=== PATIENT | male | born 1955 | race Caucasian/White ===

== ENCOUNTER → 2018-10-11 | Outpatient (CLI) | payer MEDICARE ==
[2018-03-08 11:40] VITALS: BP 113/51
[~2018-10-11] MED LIST: ACET325T9 PO; AMLO10TA8 PO; ASPI-630 PO; ATOR10TA60 PO; ATOR20TA58 PO; BUPR150T8 PO; FINA5TAB4 PO; GLIP10TA13 PO; HYDR12.575 PO; HYDR50TA6 PO; ISOS30TA4 PO; LEVO150T5 PO; LISI-130 PO; METF500T9 PO; TAMS0.4C97 PO
--- NOTE | 2018-10-11 08:12 | RAD ---
Indication: Hypertension. TECHNIQUE: Grayscale, color Doppler and spectral waveforms images of the kidneys. COMPARISON: None FINDINGS: The proximal aortic segment not visualized due to overlying bowel gas. No evidence of aortic aneurysm in the mid and distal segments. The systolic velocity in the aorta measures 167 cm/s. Right side: The right kidney measures 12.1 cm in length without hydronephrosis. The resistive index in the interlobular artery measures 0.70 which is normal. The peak systolic velocity in the distal main renal artery measures 93 cm/s with resistive index of 0.71. The peak systolic velocity in the middle main right renal artery measures 104 cm/s with resistive index of 0.80. The peak systolic velocity in the proximal main renal artery measures 109 cm/s with resistive index of 0.77. Right renal artery to aortic velocity ratio of 0.65. Renal vein is patent. Left side: The left kidney measures 12.8 cm in length without hydronephrosis. The resistive index in the interlobular artery measures 0.71 which is normal. The peak systolic velocity in the distal main renal artery measures 59 cm/s with resistive index of 0.69. The peak systolic velocity in the middle main renal artery measures 80 cm/s with resistive index of 0.74. The peak systolic velocity in the proximal main renal artery measures 51 cm/s with resistive index of 0.72. Left renal artery to aortic velocity ratio of 0.47. Adrenal vein is patent. IMPRESSION: No hematemesis significant stenosis. Electronically signed by: César Ridley DO (10/11/2018 8:10 AM) [facility]
== END | disposition home or self-care (01) ==
LOC: US 07:09
PROVIDERS: ATTEND Internal Medicine Cardiovascular Disease
DX: I10 Essential (primary) hypertension (principal)
CPT/HCPCS: 93975

== ENCOUNTER 2019-09-19 18:55 | Emergency (ER) | payer MEDICARE ==
[~2019-09-19] VITALS: Ht 177.8 cm; Wt 98.0 kg
[~2019-09-19 18:55] MED LIST changes: +METF-658 PO; -METF500T9 PO
[2019-09-19] MEDS ORDERED: IV NORMAL SALINE 1000ML BAG 1,000 ML IV SCH (19:06)
--- NOTE | 2019-09-19 19:24 | PHYS DOC ---
Past Medical History Smoking Status: Former Smoker General Adult EDM: Chief Complaint: CHEST PAIN HPI: HPI: Patient is a 64 year old male who presents with complaint of left arm pain and left arm weakness that has been intermittent over the last week. He states that he is also been having difficulty with organizing his thoughts over the last week as well. He states that yesterday he was having a hard time writing down his email address. He states that he has had a few fleeting episodes of chest discomfort. He denies any nausea, vomiting or diaphoresis. [] Review of Systems: Review of Systems: Constitutional: Denies fever or chills. [] Respiratory: Denies cough or shortness of breath. [] Cardiovascular: Denies chest pain or edema. [] Integument: Denies rash. [] Neurologic: Denies headache. Complains of left arm weakness and tingling [] A full 10 point review of systems has been reviewed and is otherwise negative. Heart Score: HEART Score for Chest Pain: HEART Score for Chest Pain Response (Comments) Value History Slighlty/Non-Suspicious 0 ECG Normal 0 Age > 65 2 Risk Factors 1 or 2 Risk Factors 1 Troponin < Normal Limit 0 Total 3 Risk Factors: Risk Factors: DM, Current or recent (<one month) smoker, HTN, HLP, family history of CAD, obesity. Risk Scores: Score 0 - 3: 2.5% MACE over next 6 weeks - Discharge Home Score 4 - 6: 20.3% MACE over next 6 weeks - Admit for Clinical Observation Score 7 - 10: 72.7% MACE over next 6 weeks - Early Invasive Strategies Allergies: Allergies: Allergies Coded Allergies Type Severity Reaction Last Updated Verified Sulfa (Sulfonamide Antibiotics) Allergy Intermediate Itching 03/07/18 Yes Physical Exam: PE: Constitutional: Well developed, well nourished, no acute distress, non-toxic appearance. [] HENT: Normocephalic, atraumatic, bilateral external ears normal, oropharynx moist, no oral exudates, nose normal. [] Eyes: PERRLA, EOMI, conjunctiva normal, no discharge. [] Neck: Normal range of motion, no tenderness, supple. [] Cardiovascular: Regular rate and rhythm [] Lungs & Thorax: Bilateral breath sounds clear to auscultation [] Abdomen: Bowel sounds normal, soft, no tenderness, no masses, no pulsatile masses. [] Skin: Warm, dry, no erythema, no rash. [] Extremities: No tenderness, no cyanosis, no clubbing, ROM intact, no edema. [] Neurologic: Alert and oriented X 3, no focal deficits noted. [] EKG: EKG: EKG demonstrates normal sinus rhythm with rate of 89. [] Radiology/Procedures: Radiology/Procedures: [] Impression: PROCEDURE: CT HEAD WO CONTRAST Exam: CT head INDICATION: Left-sided weakness TECHNIQUE: Sequential axial images through the head were obtained without the administration of IV contrast. Comparisons: None FINDINGS: No focal parenchymal lesion or hemorrhage is identified. There is no midline shift or sulcal effacement. No acute vascular territory infarction is identified. Marrufo-white distinction is preserved. The ventricular system is within normal limits without compression hydrocephalus. The basal cisterns are well maintained. The visualized portions of the paranasal sinuses and mastoid air cells are well-pneumatized. No acute fractures. IMPRESSION: No acute intracranial abnormality. Exposure: One or more of the following in the visualized dose reduction techniques were utilized for this examination: 1. Automated exposure control 2. Adjustment of the MA and/or KV according to patient size Use of iterative of reconstructive technique Electronically signed by: Samson Davis MD (09/19/2019 7:36 PM) [id number] Course & Med Decision Making: Course & Med Decision Making Pertinent Labs and Imaging studies reviewed. (See chart for details) [] Dragon Disclaimer: Dragon Disclaimer: This electronic medical record was generated, in whole or in part, using a voice recognition dictation system. Departure Departure Impression: Primary Impression: Paresthesia Additional Impressions: Left arm pain Elevated TSH Disposition: 01 HOME, SELF-CARE Condition: STABLE Referrals: TAYLOR ARCHIBALD MD (PCP) Patient Instructions: Chest Pain (Nonspecific), Paresthesia Additional Instructions: Call to schedule follow up appointment with your primary doctor in the next few days. Justicifation of Admission Dx: Justifications for Admission: Justification of Admission Dx: Comment: (Not applicable) NIKOLAS MEDELLIN Jr. DO Sep 19, 2019 19:24
[2019-09-19 19:27] LABS: BASO # 0.1 x10^3/uL (0.0-0.2); BASO % 1 % (0-3); EOS # 0.3 x10^3/uL (0.0-0.7); EOS % 3 % (0-3); HEMATOCRIT 39.7 % (39.0-53.0); HEMOGLOBIN 13.8 g/dL (13.0-17.5); LYMPH # 2.6 x10^3/uL (1.0-4.8); LYMPH % 28 % (24-48); MEAN CORPUSCULAR HEMOGLOBIN 30 pg (25-35); MEAN CORPUSCULAR HGB CONC 35 g/dL (31-37); MEAN CORPUSCULAR VOLUME 87 fL (79-100); MONO % 11 % (0-9); NEUT # 5.3 x10^3/uL (1.8-7.7); NEUT % 57 % (31-73); PLATELET COUNT 266 x10^3/uL (140-400); RED BLOOD COUNT 4.58 x10^6/uL (4.30-5.70); RED CELL DISTRIBUTION WIDTH 13.1 % (11.5-14.5); WHITE BLOOD COUNT 9.3 x10^3/uL (4.0-11.0)
[2019-09-19 19:29] LABS: CALCIUM 9.5 mg/dL (8.5-10.1); CREATININE 1.1 mg/dL (0.7-1.3); POTASSIUM 3.7 mmol/L (3.5-5.1)
[2019-09-19 19:34] LABS: BILIRUBIN,URINE NEGATIVE (NEG); CLARITY,URINE CLEAR; COLOR,URINE YELLOW; NITRITE,URINE NEGATIVE (NEG); PROTEIN,URINE NEGATIVE (NEG-TRACE); UROBILINOGEN,URINE 0.2 mg/dL (0.2 mg/dL)
[2019-09-19 19:36] LABS: ALBUMIN 4.1 g/dL (3.4-5.0); MAGNESIUM 2.3 mg/dL (1.8-2.4); TOTAL BILIRUBIN 0.2 mg/dL (0.2-1.0); TOTAL PROTEIN 8.1 g/dL (6.4-8.2)
[2019-09-19 19:37] LABS: BACTERIA,URINE 0 /HPF (0-FEW); RBC,URINE 0 /HPF (0-2); WBC,URINE 0 /HPF (0-4)
--- NOTE | 2019-09-19 19:39 | RAD ---
Exam: CT head INDICATION: Left-sided weakness TECHNIQUE: Sequential axial images through the head were obtained without the administration of IV contrast. Comparisons: None FINDINGS: No focal parenchymal lesion or hemorrhage is identified. There is no midline shift or sulcal effacement. No acute vascular territory infarction is identified. Marrufo-white distinction is preserved. The ventricular system is within normal limits without compression hydrocephalus. The basal cisterns are well maintained. The visualized portions of the paranasal sinuses and mastoid air cells are well-pneumatized. No acute fractures. IMPRESSION: No acute intracranial abnormality. Exposure: One or more of the following in the visualized dose reduction techniques were utilized for this examination: 1. Automated exposure control 2. Adjustment of the MA and/or KV according to patient size Use of iterative of reconstructive technique Electronically signed by: Samson Davis MD (09/19/2019 7:36 PM) [id number]
--- NOTE | 2019-09-19 19:55 | RAD ---
PORTABLE CHEST 1V 09/19/2019 7:06 PM INDICATION: Chest discomfort COMPARISON: None available TECHNIQUE: Portable frontal view of the chest is provided. FINDINGS: The cardiomediastinal silhouette is within normal limits. Lungs are clear. There are no significant pleural effusions. There is no pulmonary vascular congestion. No pneumothorax. No suspicious osseous abnormality. IMPRESSION: There is no acute cardiopulmonary process. Electronically signed by: Kayla Baum MD (09/19/2019 7:53 PM) [facility]
[2019-09-19 20:10] VITALS: BP 190/86
--- NOTE | 2019-09-20 08:34 | EKG ---
[facility] [address] [place] [address] Test Date: 2019-09-19 Test Time: 18:59:15 Pat Name: GERALD HERMAN Department: Room: Gender: M Gas Brazer: : 1955 Requested By: NIKOLAS MEDELLIN Order Number: [id number] Reading MD: Measurements Intervals Casey Rate: 89 P: 28 MS: 178 QRS: 21 QRSD: 82 T: 56 QT: 360 QTc: 439 Interpretive Statements SINUS RHYTHM LEFT ATRIAL ABNORMALITY ABNORMAL ECG RI6.02 No previous ECG available for comparison
== END 2019-09-19 20:43 | disposition home or self-care (01) ==
LOC: ER 18:55
DX: M79.602 Pain in left arm (principal); R20.2 Paresthesia of skin; R94.6 Abnormal results of thyroid function studies; R51 Headache; R53.1 Weakness; R07.89 Other chest pain; Z87.891 Personal history of nicotine dependence; Z88.2 Allergy status to sulfonamides
CPT/HCPCS: 36415; 70450; 71045; 80053; 81001; 83735; 83880; 84443; 84484; 85025; 93005; 99285; J7030

== ENCOUNTER → 2019-09-21 | Outpatient (CLI) | payer MEDICARE ==
[2019-09-19 20:10] VITALS: BP 190/86
--- NOTE | 2019-09-21 12:02 | CARD ---
MR#: [id number] Date of Study: 09/21/2019 Ordering Physician: NICOLASA KAYE, Referring Physician: NICOLASA KAYE Tech: Tana Santiago ARTHUR APPROVED REPORT EXAM: Two-dimensional and M-mode echocardiogram with Doppler and color Doppler. Other Information Quality : FairHR: 63bpm Rhythm : NSR INDICATION Dyspnea CAD Chest Pain RISK FACTORS Hypertension Hyperlipidemia Diabetes 2D DIMENSIONS RVDd3.4 (2.9-3.5cm)Left Atrium(2D)4.8 (1.6-4.0cm) IVSd1.4 (0.7-1.1cm)Aortic Root(2D)3.7 (2.0-3.7cm) LVDd5.8 (3.9-5.9cm)LVOT Diameter2.5 (1.8-2.4cm) PWd1.3 (0.7-1.1cm)LVDs4.4 (2.5-4.0cm) FS (%) 23.6 %SV78.1 ml Aortic Valve AoV Peak Sorin.150.0cm/sAoV VTI33.8cm AO Peak GR.9.0mmHgLVOT Peak Sorin.92.1cm/s AO Mean GR.5mmHgAVA (VMAX)3.12cm2 Mitral Valve MV E Rwqhbygo958.0cm/sMV DECEL KTMG458as MV A Evtejzgl407.0cm/sE/A Ratio0.8 MV A Liuubwhj853fi Pulmonary Valve PV Peak Rdvfycpr07.2cm/s LEFT VENTRICLE The Left Ventricle is mildly dilated. There is mild concentric left ventricular hypertrophy. The left ventricular systolic function is mildly decreased. Estimated ejection fraction is 40-45%. There is m ild global hypokinesis of the left ventricle. RIGHT VENTRICLE The right ventricle is normal size. There is normal right ventricular wall thickness. The right ventr icular systolic function is normal. ATRIA The left atrium size is normal. The right atrium size is normal. The interatrial septum is intact wit h no evidence for an atrial septal defect or patent foramen ovale as noted on 2-D or Doppler imaging. AORTIC VALVE The aortic valve is normal in structure and function. Doppler and Color Flow revealed mild aortic reg urgitation. There is no significant aortic valvular stenosis. MITRAL VALVE The mitral valve is normal in structure and function. There is no evidence of mitral valve prolapse. There is no mitral valve stenosis. Doppler and Color-flow revealed trace mitral regurgitation. TRICUSPID VALVE The tricuspid valve is normal in structure and function. Doppler and Color Flow revealed no tricuspid valve regurgitation noted. PULMONIC VALVE The pulmonary valve is normal in structure and function. Doppler and Color Flow revealed trivial pulm onic valvular regurgitation. GREAT VESSELS The aortic root is normal in size. The ascending aorta is normal in size. The pulmonary artery is nor mal. The IVC is normal in size and collapses >50% with inspiration. PERICARDIAL EFFUSION There is no evidence of significant pericardial effusion. Critical Notification Critical Value: Yes <Conclusion> The Left Ventricle is mildly dilated. The left ventricular systolic function is mildly decreased. Estimated ejection fraction is 40-45%. There is mild global hypokinesis of the left ventricle. There is mild concentric left ventricular hypertrophy. Doppler and Color Flow revealed mild aortic regurgitation. There is no significant aortic valvular stenosis. Doppler and Color-flow revealed trace mitral regurgitation. Doppler and Color Flow revealed no tricuspid valve regurgitation noted. Signed by : Mango Burleson MD Electronically Approved : 09/21/2019 12:01:54
== END ==
LOC: ECHO 09:40
PROVIDERS: ATTEND Internal Medicine Cardiovascular Disease
DX: I08.8 Other rheumatic multiple valve diseases (principal); I25.10 Atherosclerotic heart disease of native coronary artery without angina pectoris
CPT/HCPCS: 93306

== ENCOUNTER → 2019-09-27 | Outpatient (CLI) | payer MEDICARE ==
[2019-09-19 20:10] VITALS: BP 190/86
[~2019-09-27] MED LIST changes: +REGADENOSON 0.4 MG/5 ML DISP.SYRIN. IV ONE
--- NOTE | 2019-09-27 11:03 | RAD ---
MR#: [id number] Date of Study: 09/27/2019 Ordering Physician: NICOLASA KAYE, Referring Physician: NALDO BRIGGS Tech: RT Len ChilelR) (N) APPROVED REPORT Test Type: Pharmacological Stress Nurse/Tech: SALUD Grove Test Indications: chest pain, shortness of breath, CAD Cardiac History: HTN, , See Electronic Medical Record Medications: See Electronic Medical Record Medical History: See Electronic Medical Record Resting ECG: SR Resting Heart Rate: 61 bpm Resting Blood Pressure: 154/82mmHg Pretest Chest Pain: No chest pain Nurse/Tech Notes S1S2, regular rate, Lungs CTA, denied CP or SOA at this time Consent: The procedure was explained to the patient in lay terms. Informed consent was witnessed. Julius eout was entered into [employer]. History and Stress Test performed by ALDO Card, ARRT (R) (N) Pharm. Details Pharmacologic stress testing was performed using 0.4mg per 5ml of regadenoson given intravenously ove r 7-10 seconds. Stress Symptoms Pt c/o "tightness" in his chest, subsided after a couple minutes. POST EXERCISE Reason for Termination: Infusion complete Max HR: 97 bpm Max Blood Pressure: 166/79mmHg Blood Pressure response to exercise: Normal blood pressure response during stress. Heart Rate response to exercise: Normal heart rate response during stress Chest Pain: No. Arrhythmia: No. ST Change: No. INTERPRETATION Stress EKG Conclusion: Baseline EKG showed sinus rhythm. No ischemic changes at peak stress. No arr hythmias. Imaging Protocol IMAGE PROTOCOL: Rest Tc-99m/stress Tc-99m 1 day Rest: Stress: Viability: Radiopharm.Tc99m HohurgernYk52k Sestamibi Njus92eZj 33mCi Duration 15min. 10min. Img Date 09/27/2019 09/27/2019 Inj-Img Xoeu94dsh. 60min. Rest Admin Site:IV - Left AntecubitalAdministrator:RT Len ChilelR)(N) Stress Admin Site: IV - Left AntecubitalAdministrator: Charisma Hess, NMTCB, ARRT (R)(N) STRESS DATA End Diast. Vol.174.0mlAv. Heart Rate72.0bpm End Syst. Vol.72.0mlCO Index BSA7.3L/min Myocardial Vtvs639.0gEject. Aijedhzt66.0% Stress Rates Pk. Fill Rate1.88EDV/secLVtime Pk. Fill 219.80msec Pk. Empty Rate3.39ESV/secLVtime Pk. Tjvyc830.72msec /3 Pk. Fill0.86EDV/sec Stress Scores Regional WT0.00Summed WT7.00 Regional WM0.00Summed WM0.00 Study quality was good. Left Ventricular size was Normal at Rest and Stress. Lung uptake was . Left Ventricular ejection fraction is 59%. The rest and stress images show normal perfusion, normal contraction and thickening. LV Perf. Quant 17 Seg. SSS1.00 17 Seg. SRS0.00 17 Seg. SDS1.00 Stress Defect Extent (% LAD)0.00Rest Defect Extent (% LAD)0.00Rev. Defect Extent (% LAD)0.00 Stress Defect Extent (% LCX) 6.30Rest Defect Extent (% LCX)0.00Rev. Defect Extent (% LCX)0.00 Stress Defect Extent (% RCA)0.00Rest Defect Extent (% RCA)0.00Rev. Defect Extent (% RCA)0.00 Stress Defect Extent (% ISH)2.00Rest Defect Extent (% ISH)0.00Rev. Defect Extent (% ISH)0.00 Conclusion 1. Regadenoson cardioisotope stress test did not show any evidence of ischemia or infarct. 2. Normal left ventricular systolic function with ejection fraction calculated at 59%. 3. Low risk for cardiac events. Signed by : Nicolasa Kaye, Electronically Approved : 09/27/2019 11:03:20
== END | disposition home or self-care (01) ==
LOC: NM 07:38
PROVIDERS: ATTEND Internal Medicine Cardiovascular Disease
DX: I25.10 Atherosclerotic heart disease of native coronary artery without angina pectoris (principal)
CPT/HCPCS: 78452; 93017; A9500; J2785

== ENCOUNTER 2020-01-21 15:21 | Observation (INO) | payer MEDICARE ==
[~2020-01-21] VITALS: Ht 177.8 cm; Wt 97.8 kg
[~2020-01-21 15:21] MED LIST changes: +AMLO-187 PO; -AMLO10TA8 PO; -REGADENOSON 0.4 MG/5 ML DISP.SYRIN. IV ONE
--- NOTE | 2020-01-21 16:25 | RAD ---
Study: CR PORTABLE CHEST 1V Indication: Shortness of air. Comparison: 09/19/2019 Findings: Unchanged prominence of the cardiomediastinal silhouette. Within normal limits central vasculature. No lobar consolidation, layering effusion or pneumothorax. Impression: No acute radiographic abnormality of the chest. No significant change from 09/19/2019. Electronically signed by: GEMA BRUNSON MD (01/21/2020 4:23 PM) [id number]
[2020-01-21 16:36] LABS: BILIRUBIN,URINE NEGATIVE (NEG); CLARITY,URINE CLOUDY; COLOR,URINE YELLOW; NITRITE,URINE NEGATIVE (NEG); PH,URINE 6.5 (<5.0-8.0); PROTEIN,URINE NEGATIVE (NEG-TRACE); UROBILINOGEN,URINE 0.2 mg/dL (0.2 mg/dL)
[2020-01-21 16:45] LABS: BACTERIA,URINE 0 /HPF (0-FEW); RBC,URINE OCC /HPF (0-2)
[2020-01-21 17:04] LABS: BASO # 0.1 x10^3/uL (0.0-0.2); BASO % 1 % (0-3); EOS # 0.3 x10^3/uL (0.0-0.7); EOS % 4 % (0-3); HEMATOCRIT 38.9 % (39.0-53.0); HEMOGLOBIN 13.7 g/dL (13.0-17.5); LYMPH # 2.1 x10^3/uL (1.0-4.8); LYMPH % 23 % (24-48); MEAN CORPUSCULAR HEMOGLOBIN 31 pg (25-35); MEAN CORPUSCULAR HGB CONC 35 g/dL (31-37); MEAN CORPUSCULAR VOLUME 87 fL (79-100); MONO % 11 % (0-9); NEUT # 5.8 x10^3/uL (1.8-7.7); NEUT % 62 % (31-73); PLATELET COUNT 257 x10^3/uL (140-400); RED BLOOD COUNT 4.46 x10^6/uL (4.30-5.70); RED CELL DISTRIBUTION WIDTH 13.3 % (11.5-14.5); WHITE BLOOD COUNT 9.3 x10^3/uL (4.0-11.0)
[2020-01-21 17:07] LABS: CREATININE 1.1 mg/dL (0.7-1.3); POTASSIUM 3.4 mmol/L (3.5-5.1)
--- NOTE | 2020-01-21 17:13 | PHYS DOC ---
Past Medical History Past Medical History: Anxiety, Hypertension, Hypothyroid, Other Additional Past Medical Histor: osteomylitis right leg; DDD Past Surgical History: Other Additional Past Surgical Histo: R ankle; hernia; sinus Smoking Status: Never Smoker Alcohol Use: None General Adult EDM: Chief Complaint: CHEST PAIN HPI: HPI: Patient is a 64 year old male who presented to ER today for evaluation of chest pain off and on for 4 days. Patient described the pain as heaviness, felt like somebody sitting on his chest and took the wind out of him. Patient denies any fever. Denies any chills. He has a history of chronic cough nonproductive. He was a former smoker, he quit smoking 30 years ago. Patient has history of hypertension and diabetic. He had a normal cardiac catheterization on February 2018. Patient does have family history of heart disease. Patient denies any recent travel or operation. Review of Systems: Review of Systems: Constitutional: Denies fever or chills. [] Eyes: Denies change in visual acuity. [] HENT: Denies nasal congestion or sore throat. [] Respiratory: Denies cough or shortness of breath. [] Cardiovascular: positive for chest pain. GI: Denies abdominal pain, nausea, vomiting, bloody stools or diarrhea. [] : Denies dysuria. [] Musculoskeletal: Denies back pain or joint pain. [] Integument: Denies rash. [] Neurologic: Denies headache, focal weakness or sensory changes. [] Endocrine: Denies polyuria or polydipsia. [] Lymphatic: Denies swollen glands. [] Psychiatric: Denies depression or anxiety. [] Heart Score: HEART Score for Chest Pain: HEART Score for Chest Pain Response (Comments) Value History Moderately Suspicious 1 ECG Nonspecific Repolarizatio 1 Age > 65 2 Risk Factors >3 Risk Factors or Hx CAD 2 Troponin < Normal Limit 0 Total 6 Risk Factors: Risk Factors: DM, Current or recent (<one month) smoker, HTN, HLP, family history of CAD, obesity. Risk Scores: Score 0 - 3: 2.5% MACE over next 6 weeks - Discharge Home Score 4 - 6: 20.3% MACE over next 6 weeks - Admit for Clinical Observation Score 7 - 10: 72.7% MACE over next 6 weeks - Early Invasive Strategies Allergies: Allergies: Allergies Coded Allergies Type Severity Reaction Last Updated Verified Sulfa (Sulfonamide Antibiotics) Allergy Intermediate Itching 03/07/18 Yes Physical Exam: PE: Constitutional: Well developed, well nourished, no acute distress, non-toxic appearance. [] HENT: Normocephalic, atraumatic, bilateral external ears normal, oropharynx moist, no oral exudates, nose normal. [] Eyes: PERRLA, EOMI, conjunctiva normal, no discharge. [] Neck: Normal range of motion, no tenderness, supple, no stridor. [] Cardiovascular:Heart rate regular rhythm, no murmur [] Lungs & Thorax: Bilateral breath sounds clear to auscultation [] Abdomen: Bowel sounds normal, soft, no tenderness, no masses, no pulsatile masses. [] Skin: Warm, dry, no erythema, no rash. [] Back: No tenderness, no CVA tenderness. [] Extremities: No tenderness, no cyanosis, no clubbing, ROM intact, no edema. [] Neurologic: Alert and oriented X 3, normal motor function, normal sensory function, no focal deficits noted. [] Psychologic: Affect normal, judgement normal, mood normal. [] Current Patient Data: Labs: Laboratory Tests Test 01/21/20 16:20 01/21/20 16:38 Urine Collection Type Unknown Urine Color Yellow Urine Clarity Cloudy Urine pH 6.5 (<5.0-8.0) Urine Specific Delight <=1.005 (1.000-1.030) Urine Protein Negative mg/dL (NEG-TRACE) Urine Glucose (UA) Negative mg/dL (NEG) Urine Ketones (Stick) Negative mg/dL (NEG) Urine Blood Negative (NEG) Urine Nitrite Negative (NEG) Urine Bilirubin Negative (NEG) Urine Urobilinogen Dipstick 0.2 mg/dL (0.2 mg/dL) Urine Leukocyte Esterase Negative (NEG) Urine RBC Occ /HPF (0-2) Urine WBC 5-10 /HPF (0-4) Urine Squamous Epithelial Cells Few /LPF Urine Bacteria 0 /HPF (0-FEW) White Blood Count 9.3 x10^3/uL (4.0-11.0) Red Blood Count 4.46 x10^6/uL (4.30-5.70) Hemoglobin 13.7 g/dL (13.0-17.5) Hematocrit 38.9 % (39.0-53.0) L Mean Corpuscular Volume 87 fL (79-100) Mean Corpuscular Hemoglobin 31 pg (25-35) Mean Corpuscular Hemoglobin Concent 35 g/dL (31-37) Red Cell Distribution Width 13.3 % (11.5-14.5) Platelet Count 257 x10^3/uL (140-400) Neutrophils (%) (Auto) 62 % (31-73) Lymphocytes (%) (Auto) 23 % (24-48) L Monocytes (%) (Auto) 11 % (0-9) H Eosinophils (%) (Auto) 4 % (0-3) H Basophils (%) (Auto) 1 % (0-3) Neutrophils # (Auto) 5.8 x10^3/uL (1.8-7.7) Lymphocytes # (Auto) 2.1 x10^3/uL (1.0-4.8) Monocytes # (Auto) 1.0 x10^3/uL (0.0-1.1) Eosinophils # (Auto) 0.3 x10^3/uL (0.0-0.7) Basophils # (Auto) 0.1 x10^3/uL (0.0-0.2) Sodium Level 139 mmol/L (136-145) Potassium Level 3.4 mmol/L (3.5-5.1) L Chloride Level 100 mmol/L (98-107) Carbon Dioxide Level 26 mmol/L (21-32) Anion Gap 13 (6-14) Blood Urea Nitrogen 14 mg/dL (8-26) Creatinine 1.1 mg/dL (0.7-1.3) Estimated GFR (Cockcroft-Gault) 67.0 BUN/Creatinine Ratio 13 (6-20) Glucose Level 198 mg/dL (70-99) H Calcium Level 9.0 mg/dL (8.5-10.1) Magnesium Level Pending Total Bilirubin Pending Aspartate Amino Transferase (AST) Pending Alanine Aminotransferase (ALT) Pending Alkaline Phosphatase Pending Total Protein Pending Albumin Pending Albumin/Globulin Ratio Pending Lipase Pending Laboratory Tests 01/21/20 16:38 Laboratory Tests 01/21/20 16:38 Vital Signs: Vital Signs Date Time Temp Pulse Resp B/P (MAP) Pulse Ox O2 Delivery O2 Flow Rate FiO2 01/21/20 15:37 99.1 93 18 220/101 (140) 97 Room Air 99.1 EKG: EKG: EKG WAS DONE AT 1527 RATE OF 87 BPM, SINUS RHYTHM, NO STEMI. , NO STEMI. Radiology/Procedures: Radiology/Procedures: [][id number] [place] [address] IMAGING REPORT Signed PATIENT: GERALD HERMAN: [id number] : 1955 LOCATION: ER AGE: 64 SEX: M EXAM STATUS: REG ER ORD. PHYSICIAN: PHILIP DIAZ DO REASON: soa PROCEDURE: PORTABLE CHEST 1V Study: CR PORTABLE CHEST 1V Indication: Shortness of air. Comparison: 09/19/2019 Findings: Unchanged prominence of the cardiomediastinal silhouette. Within normal limits central vasculature. No lobar consolidation, layering effusion or pneumothorax. Impression: No acute radiographic abnormality of the chest. No significant change from 09/19/2019. Electronically signed by: GEMA BRUNSON MD (01/21/2020 4:23 PM) [id number] DICTATED and SIGNED BY: GEMA BRUNSON MD DATE: 01/21/[address] [address] IMAGING REPORT Signed PATIENT: GERALD HERMAN: [id number] : 1955 LOCATION: ER AGE: 64 SEX: M EXAM STATUS: REG ER ORD. PHYSICIAN: PHILIP DIAZ DO REASON: CHEST PAIN AND SHORTNESS OF AIR FOR 4 DAYS PROCEDURE: CT ANGIOGRAPHY CHEST Exam: CT of chest with contrast INDICATION: Chest pain and shortness of breath for 4 days TECHNIQUE: Sequential axial images through the chest obtained following the administration of 100 mL of Omnipaque 350 IV contrast. Sagittal and coronal reformatted images were reconstructed from the axial data and reviewed. Comparisons: None FINDINGS: Visualized portions of the thyroid are unremarkable. No enlarged mediastinal lymph nodes are identified. Heart is enlarged. Mild coronary artery calcium lesions. No pericardial effusion. Thoracic aorta has a normal course and caliber. Pulmonary artery is not enlarged. No pulmonary embolus identified within the main, lobar or segmental pulmonary arteries. Airways are patent. No consolidation or pneumothorax. No suspicious lung nodules. Strandy opacities at dependent portion lungs likely representing atelectasis. No pleural effusion or thickening. Diffuse hepatic steatosis. No suspicious osseous lesions or acute fractures. IMPRESSION: No pulmonary embolus identified within the main, lobar or segmental pulmonary arteries. Exposure: One or more of the following in the visualized dose reduction techniques were utilized for this examination: 1. Automated exposure control 2. Adjustment of the MA and/or KV according to patient size 3. Use of iterative of reconstructive technique Electronically signed by: Samson Mayfield MD (01/21/2020 5:42 PM) [facility] DICTATED and SIGNED BY: SAMSON MAYFIELD MD DATE: 01/21/20 174 Course & Med Decision Making: Course & Med Decision Making Pertinent Labs and Imaging studies reviewed. (See chart for details) Patient is a 64-year-old male who presented to ER due to chest pain, CT scan of chest did not show any acute problem. EKG and enzyme came back normal so far. Due to risk factor patient be admitted to hospital for observation. Discussed with Dr. Lino who agrees TO admit patient Dragon Disclaimer: Heber Disclaimer: This electronic medical record was generated, in whole or in part, using a voice recognition dictation system. Departure Departure Impression: Primary Impression: Chest pain Admitting Physician: DEWAYNES (DR. LINO) Referrals: CHERRI STOKES MD (PCP) PHILIP DIAZ DO Jan 21, 2020 17:12
[2020-01-21 17:22] LABS: ALBUMIN 3.9 g/dL (3.4-5.0); MAGNESIUM 2.3 mg/dL (1.8-2.4); TOTAL BILIRUBIN 0.2 mg/dL (0.2-1.0); TOTAL PROTEIN 7.7 g/dL (6.4-8.2)
[2020-01-21] MEDS ORDERED: IOHEXOL 350 MG/ML 100 ML VIAL. IV ONE (17:30)
[2020-01-21] MEDS ORDERED: CONTRAST GIVEN. MC PRN (17:30)
--- NOTE | 2020-01-21 17:39 | EKG ---
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
--- NOTE | 2020-01-21 17:45 | RAD ---
Exam: CT of chest with contrast INDICATION: Chest pain and shortness of breath for 4 days TECHNIQUE: Sequential axial images through the chest obtained following the administration of 100 mL of Omnipaque 350 IV contrast. Sagittal and coronal reformatted images were reconstructed from the axial data and reviewed. Comparisons: None FINDINGS: Visualized portions of the thyroid are unremarkable. No enlarged mediastinal lymph nodes are identified. Heart is enlarged. Mild coronary artery calcium lesions. No pericardial effusion. Thoracic aorta has a normal course and caliber. Pulmonary artery is not enlarged. No pulmonary embolus identified within the main, lobar or segmental pulmonary arteries. Airways are patent. No consolidation or pneumothorax. No suspicious lung nodules. Strandy opacities at dependent portion lungs likely representing atelectasis. No pleural effusion or thickening. Diffuse hepatic steatosis. No suspicious osseous lesions or acute fractures. IMPRESSION: No pulmonary embolus identified within the main, lobar or segmental pulmonary arteries. Exposure: One or more of the following in the visualized dose reduction techniques were utilized for this examination: 1. Automated exposure control 2. Adjustment of the MA and/or KV according to patient size 3. Use of iterative of reconstructive technique Electronically signed by: Samson Davis MD (01/21/2020 5:42 PM) [facility]
[2020-01-21] MEDS ORDERED: DEXTROSE 50% 25 GM / 50ML DISP.SYRIN. IV PRN (22:15)
[2020-01-21] MEDS ORDERED: ONDANSETRON PF 4 MG/2 ML VIAL. IV PRN (22:15)
[2020-01-21] MEDS ORDERED: METOPROLOL TARTRATE 5 MG/5 ML VIAL. IVP PRN (22:15)
[2020-01-21] MEDS ORDERED: DOCUSATE SODIUM 100 MG CAPSULE. PO PRN (22:15)
[2020-01-21] MEDS ORDERED: ACETAMINOPHEN 325 MG TABLET. PO PRN (22:15)
[2020-01-21] MEDS ORDERED: POTASSIUM CHLORIDE 20 MEQ TABLET.ER. PO ONE (22:30)
[2020-01-21] MEDS ORDERED: ATOR10TA60 PO (22:49)
[2020-01-21] MEDS ORDERED: METF10007 PO (22:49)
[2020-01-21] MEDS ORDERED: TAMS0.4C97 PO (22:49)
[2020-01-21] MEDS ORDERED: ATORVASTATIN CALCIUM 20 MG TABLET PO SCH (23:00)
[2020-01-21] MEDS ORDERED: ENOXAPARIN 40 MG/0.4 ML SYRINGE. SQ SCH (23:00)
[2020-01-21 23:04] VITALS: BP 182/104
[2020-01-22] MEDS ORDERED: TAMSULOSIN 0.4 MG CAP.ER.24H. PO SCH
[2020-01-22] MEDS ORDERED: ATORVASTATIN CALCIUM 10 MG TABLET. PO SCH
[2020-01-22 03:09] VITALS: BP 149/84
[2020-01-22 05:26] LABS: CALCIUM 8.9 mg/dL (8.5-10.1); CREATININE 1.1 mg/dL (0.7-1.3); POTASSIUM 3.7 mmol/L (3.5-5.1)
[2020-01-22] MEDS ORDERED: LEVOTHYROXINE 150 MCG TABLET PO SCH (06:00)
[2020-01-22 07:00] VITALS: BP 157/84
[2020-01-22] MEDS: INSULIN LISPRO 300 UNITS/3 ML VIAL. SQ SCH ×2 (07:30→12:38)
[2020-01-22] MEDS ORDERED: FINASTERIDE 5 MG TABLET. PO SCH (09:00)
[2020-01-22] MEDS ORDERED: amLODIPine BESYLATE 10 MG TABLET PO SCH (09:00)
[2020-01-22] MEDS ORDERED: ASPIRIN CHEWABLE 81 MG TABLET. PO SCH (09:00)
[2020-01-22] MEDS ORDERED: ISOSORBIDE MONONITRATE ER 30 MG TAB.ER.24H PO SCH (09:00)
[2020-01-22] MEDS ORDERED: LISINOPRIL 20 MG TABLET PO SCH (09:00)
[2020-01-22] MEDS ORDERED: buPROPion SR 150 MG TABLET.SA PO SCH (09:00)
[2020-01-22 11:00] VITALS: BP 133/75
--- NOTE | 2020-01-22 11:05 | NUR ---
SS following for discharge planning. SS reviewed pt chart and discussed with pt RN. Pt is from home with spouse and is currently on room air. Discharge plan is to home when medically ready. Possible discharge to home today. SS will continue to follow for discharge planning.
--- NOTE | 2020-01-22 11:44 | SSS ---
ADMIT DATE: 01/22/2020 ADMIT AND DISCHARGE DATE: 01/21. CHIEF COMPLAINT: Chest pain. HISTORY OF PRESENT ILLNESS: The patient is a pleasant 64-year-old male who presented to the ER last night with chest pain. It has been occurring for 4 days. He thinks it was anxiety related. He had a clean cath done about [address] Godwin. The patient was admitted overnight for observation. This morning, he is doing well. I saw and examined him and he wants to go home. His troponins are negative. He has requested script for some p.r.n. anxiety medicine. He states he is already on Wellbutrin. I gave him prescription for Xanax. We are going to let him home this afternoon. PAST MEDICAL HISTORY: Anxiety, hypertension, hypothyroidism, osteomyelitis of the right leg, degenerative joint disease, right ankle surgery, hernia surgery, sinus surgery,polypharmacy. ALLERGIES: SULFA. FAMILY HISTORY: Diabetes. SOCIAL HISTORY: He does not drink, smoke or take drugs. He is still working. He is . No hobbies currently. MEDICATIONS: Reviewed, please refer to the MRAD. REVIEW OF SYSTEMS: GENERAL: No history of weight change, weakness or fevers. SKIN: No bruising, hair changes or rashes. EYES: No blurred, double or loss of vision. NOSE AND THROAT: No history of nosebleeds, hoarseness or sore throat. HEART: No history of palpitations, chest pain or shortness of breath on exertion. LUNGS: Denies cough, hemoptysis, wheezing or shortness of breath. GASTROINTESTINAL: Denies changes in appetite, nausea, vomiting, diarrhea or constipation. GENITOURINARY: No history of frequency, urgency, hesitancy or nocturia. NEUROLOGIC: Denies history of numbness, tingling, tremor or weakness. PSYCHIATRIC: No history of panic, anxiety or depression. ENDOCRINE: No history of heat or cold intolerance, polyuria or polydipsia. EXTREMITIES: Denies muscle weakness, joint pain, pain on walking or stiffness. PHYSICAL EXAMINATION: VITALS: Within normal limits and are stable. GENERAL: No apparent distress. Alert and oriented. HEENT: Normal cephalic atraumatic, external auditory canals are patent. EYES: Extraocular muscles are intact, pupils are equally round and reactive to light and accommodation. MUSCULOSKELETAL: Well developed, well nourished, good range of motion. ENDOCRINE: No thyromegaly was palpated. LYMPHATICS: No cervical chain or axillary nodes were noted. HEMATOPOIETIC: No bruising. NECK: Supple, no JVD, no thyromegaly was noted. LUNGS: Clear to auscultation in all lung miller without rhonchi or wheezing. HEART: RRR, S1, S2 present. Peripheral pulses intact, no obvious murmurs were noted. ABDOMEN: Soft, nontender. Positive bowel sounds no organomegaly, normal bowel sounds. EXTREMITIES: Without any cyanosis, clubbing, or edema. Pedal pulses intact, Homans sign is negative. NEUROLOGIC: Normal speech, normal tone. A & O x3, moves all extremities, no obvious focal deficits. PSYCHIATRIC: Normal affect, normal mood. Stable. SKIN: No ulcerations or rashes, good skin turgor, no jaundice. VASCULAR: Good capillary refill, neurovascular bundle appears to be intact. ASSESSMENT AND PLAN: Atypical chest pain, suspect costochondritis versus gastroesophageal reflux disease versus anxiety or combination of the three. Clinically, he looks great. We are going to let him go home with close outpatient followup. DISPOSITION: Home. ACTIVITY: As tolerated. DIET: Low sodium. MEDICATIONS: Please see the MRAD. TOTAL TIME: 32 minutes. IGOR YOUNGBLOOD DO DR: ELIZABETH/rachael JOB#: [id number] / [id number]
[2020-01-22] MEDS ORDERED: POTA20TA4 PO (12:18)
[2020-01-22] MEDS ORDERED: ALPR0.5T PO (12:19)
--- NOTE | 2020-01-22 12:53 | NUR ---
Discharge Note: GERALD HERMAN [address] [place] [address] Discharge instructions and discharge home medications reviewed with Patient and a copy given. All questions have been answered and understanding verbalized. The following instructions and handouts were given: discharge instructions, prescriptions, hypokalemia & K info, CP info, Xanax info, GERD info, anxiety info. Discontinued lines and drains: Peripheral IV intact. Patient discharged to Home or Self Care with Spouse via Wheelchair at 1253.
== END 2020-01-22 12:53 | disposition home or self-care (01) ==
LOC: ER 15:21 → ED HOLD 18:28 → 2 NORTH 21:27
PROVIDERS: ADMIT Internal Medicine; ATTEND Internal Medicine
DX: R07.89 Other chest pain (principal); I10 Essential (primary) hypertension; F41.9 Anxiety disorder, unspecified; E03.9 Hypothyroidism, unspecified; E11.9 Type 2 diabetes mellitus without complications; M19.071 Primary osteoarthritis, right ankle and foot; Z98.890 Other specified postprocedural states; Z79.899 Other long term (current) drug therapy; Z79.4 Long term (current) use of insulin
CPT/HCPCS: 36415; 71045; 71275; 80048; 80053; 81001; 82962; 83690; 83735; 83880; 84443; 84484; 85025; 87086; 93005; 96372; 96374; 99285; G0378; J1650; J1815; J3490; Q9967; G0379

== ENCOUNTER → 2020-06-06 | Outpatient (CLI) | payer MEDICARE ==
[~2020-06-06] MED LIST changes: +ALPR0.5T PO; -HYDR50TA6 PO; +HYDR50TA9 PO; -ISOS30TA4 PO; +ISOS30TA68 PO; +METF10007 PO; +POTA20TA4 PO
--- NOTE | 2020-06-06 13:30 | RAD ---
MR#: [id number] Date of Study: 06/06/2020 Ordering Physician: NICOLASA KAYE, Referring Physician: NICOLASA KAYE, Tech: Pa Castellano MBA, RDMS, RVT, RDCS, RTR APPROVED REPORT Patient Location: OUT-PATIENT Indications CAD Renal Artery Doppler Right Renal Artery Left Renal Arter y Proximal 103.0/21.0 cm/secProximal 74.0/20.0 cm/sec Mid 106.0/21.0 cm/secMid 66.0/15.0 cm/sec Distal 75.0/16.0 cm/secDistal 59.0/17.0 cm/sec Renal/Aorta Ratio 0.76Renal/Aorta Ratio 0.53 Prox. Resistive Index 0.80Prox. Resistive Index 0.73 Mid Resistive Index 0.80Mid Resistive Index 0.77 Distal Resistive Index 0.79Distal Resistive Index 0.72 Rt. Segmental A. 24.0/7.0 cm/secLt. Segmental A. 24.0/6.0 cm/sec Renal Measurements RightLeft Kidney Ryhson77.5 cm cmKidney Ucpwaa49.2 cm cm Right Additional FindingsLeft Additional Findings Structure: CYST3.0/ cm/s Findings Grayscale lesions the bilateral renal vessels are grossly unremarkable. Normal renal to aortic ratio s and velocities. There is a incidental renal cysts noted on the left side measuring approximately 3 cm. This appears to be a simple cyst. Critical Notification Critical Value: No <Conclusion> 1. No significant renal artery stenosis identified bilaterally 2. Incidental finding of a left simple renal cyst measuring 3 cm. Signed by : Montana Benson, Electronically Approved : 06/06/2020 13:29:52
== END ==
LOC: US 09:28
PROVIDERS: ATTEND Internal Medicine Cardiovascular Disease
DX: I70.1 Atherosclerosis of renal artery (principal); I25.10 Atherosclerotic heart disease of native coronary artery without angina pectoris; I70.0 Atherosclerosis of aorta
CPT/HCPCS: 93975

== ENCOUNTER 2020-07-03 09:16 | Emergency (ER) | payer MEDICARE ==
[~2020-07-03] VITALS: Ht 177.8 cm; Wt 97.7 kg
--- NOTE | 2020-07-03 09:56 | ED.ADGEN ---
Past Medical History Past Medical History: Anxiety, Diabetes-Type II, GERD, High Cholesterol, Hypertension, Hypothyroid, Other Additional Past Medical Histor: osteomylitis right leg; DDD Past Surgical History: Other Additional Past Surgical Histo: R ankle; hernia;sinus,PROSTATE Smoking Status: Former Smoker Alcohol Use: None General Adult EDM: Chief Complaint: CHEST PAIN HPI: HPI: Patient is a 65 year old male coming in for multiple complaints. Patient states for the past couple weeks been having intermittent left-sided sharp chest pain, dyspnea on exertion, occasional jaw pain and tingling down both arms. Patient initially attributed the tingling in his arms to his cervical radiculopathy. Patient states he was seen 4 days ago in [place] and had a CT cardiac scan done. Patient and his for yesterday results and was told he had calcifications. Patient's coil strapper is Dr. Godwin has not been able to follow-up with him. Patient states yesterday he had an episode of diaphoresis, lightheadedness, and shakiness. States it resolved after he took some glucose tablets. Patient states he is taking a statin, diabetes medications, for blood pressure medications. States that in February 2018 he had a heart cath done and was told that there were some small vessel occlusions or too small to stent. Patient states he has blood pressure that is difficult to control is been running high recently. Patient states that about 1 week ago had an episode of feeling unwell and checked his pulse and blood pressure. States his pulse ranged from 39-49, his blood pressure was high in both arms but symmetric. Denies any lower extremity edema or history of blood clots. Has a history of heart disease in both parents. Patient states he has had increased urination, debulking of his prostate 3 weeks ago for low-grade prostate cancer Review of Systems: Review of Systems: All other systems within normal limits except for as noted in the HPI Allergies: Allergies: Allergies Coded Allergies Type Severity Reaction Last Updated Verified Penicillins Allergy Intermediate UNKNOWN 07/03/20 Yes Sulfa (Sulfonamide Antibiotics) Allergy Intermediate Itching 03/07/18 Yes Physical Exam: PE: Constitutional: Well developed, well nourished, no acute distress, non-toxic appearance. [] HENT: Normocephalic, atraumatic, bilateral external ears normal, nose normal. [] Eyes: PERRLA, conjunctiva normal, no discharge. [] Neck: No rigidity, supple, no stridor. [] Cardiovascular: Regular rate and rhythm, brisk cap refill [] Lungs & Thorax: Non labored symmetric respirations, no tachypnea or respiratory distress. No chest tenderness to palpation [] Abdomen: Soft, nondistended, no tenderness to palpation. Skin: Warm, dry, no erythema, no rash. [] Back: Unremarkable Extremities: No deformities, range of motion grossly intact, no lower extremity edema [] Neurologic: Alert and oriented X 3, no focal deficits noted. [] Psychologic: Affect normal, judgement normal, mood normal. [] Current Patient Data: Labs: Laboratory Tests Test 07/03/20 09:30 07/03/20 09:50 White Blood Count 8.0 x10^3/uL (4.0-11.0) Red Blood Count 4.16 x10^6/uL (4.30-5.70) L Hemoglobin 12.5 g/dL (13.0-17.5) L Hematocrit 36.7 % (39.0-53.0) L Mean Corpuscular Volume 88 fL (79-100) Mean Corpuscular Hemoglobin 30 pg (25-35) Mean Corpuscular Hemoglobin Concent 34 g/dL (31-37) Red Cell Distribution Width 13.5 % (11.5-14.5) Platelet Count 268 x10^3/uL (140-400) Neutrophils (%) (Auto) 65 % (31-73) Lymphocytes (%) (Auto) 22 % (24-48) L Monocytes (%) (Auto) 9 % (0-9) Eosinophils (%) (Auto) 3 % (0-3) Basophils (%) (Auto) 1 % (0-3) Neutrophils # (Auto) 5.1 x10^3/uL (1.8-7.7) Lymphocytes # (Auto) 1.7 x10^3/uL (1.0-4.8) Monocytes # (Auto) 0.7 x10^3/uL (0.0-1.1) Eosinophils # (Auto) 0.3 x10^3/uL (0.0-0.7) Basophils # (Auto) 0.1 x10^3/uL (0.0-0.2) D-Dimer (Mary) 0.30 ug/mlFEU (0.00-0.50) Sodium Level 138 mmol/L (136-145) Potassium Level 3.5 mmol/L (3.5-5.1) Chloride Level 101 mmol/L (98-107) Carbon Dioxide Level 23 mmol/L (21-32) Anion Gap 14 (6-14) Blood Urea Nitrogen 10 mg/dL (8-26) Creatinine 1.0 mg/dL (0.7-1.3) Estimated GFR (Cockcroft-Gault) 74.5 BUN/Creatinine Ratio 10 (6-20) Glucose Level 259 mg/dL (70-99) H Calcium Level 8.5 mg/dL (8.5-10.1) Phosphorus Level 3.0 mg/dL (2.6-4.7) Magnesium Level 2.1 mg/dL (1.8-2.4) Total Bilirubin 0.4 mg/dL (0.2-1.0) Aspartate Amino Transferase (AST) 17 U/L (15-37) Alanine Aminotransferase (ALT) 30 U/L (16-63) Alkaline Phosphatase 57 U/L (46-116) Creatine Kinase 135 U/L (39-308) Myoglobin 51 ng/mL (16-96) Troponin I Quantitative < 0.017 ng/mL (0.000-0.055) XH-Nmv-O-Type Natriuretic Peptide 117 pg/mL (0-124) Total Protein 7.4 g/dL (6.4-8.2) Albumin 3.6 g/dL (3.4-5.0) Albumin/Globulin Ratio 0.9 (1.0-1.7) L Lipase 199 U/L (73-393) Thyroid Stimulating Hormone (TSH) 1.035 uIU/mL (0.358-3.74) Urine Collection Type Unknown Urine Color Yellow Urine Clarity Clear Urine pH 6.0 (<5.0-8.0) Urine Specific [place] <=1.005 (1.000-1.030) Urine Protein Negative mg/dL (NEG-TRACE) Urine Glucose (UA) 250 mg/dL (NEG) Urine Ketones (Stick) Negative mg/dL (NEG) Urine Blood Small (NEG) Urine Nitrite Negative (NEG) Urine Bilirubin Negative (NEG) Urine Urobilinogen Dipstick 0.2 mg/dL (0.2 mg/dL) Urine Leukocyte Esterase Moderate (NEG) Urine RBC Occ /HPF (0-2) Urine WBC 5-10 /HPF (0-4) Urine Bacteria 0 /HPF (0-FEW) Laboratory Tests 07/03/20 09:30 Laboratory Tests 07/03/20 09:30 Vital Signs: Vital Signs Date Time Temp Pulse Resp B/P (MAP) Pulse Ox O2 Delivery O2 Flow Rate FiO2 07/03/20 11:20 62 23 178/81 (113) 97 Room Air 07/03/20 09:17 98.1 98.1 EKG: EKG: Sinus rhythm with a heart rate 72 bpm. Left axis deviation, no ST elevation depression, no ectopy, normal intervals. [] Heart Score: C/O Chest Pain: Yes HEART Score for Chest Pain: HEART Score for Chest Pain Response (Comments) Value History Slighlty/Non-Suspicious 0 ECG Normal 0 Age > 65 2 Risk Factors >3 Risk Factors or Hx CAD 2 Total 4 Risk Factors: Risk Factors: DM, Current or recent (<one month) smoker, HTN, HLP, family history of CAD, obesity. Risk Scores: Score 0 - 3: 2.5% MACE over next 6 weeks - Discharge Home Score 4 - 6: 20.3% MACE over next 6 weeks - Admit for Clinical Observation Score 7 - 10: 72.7% MACE over next 6 weeks - Early Invasive Strategies Radiology/Procedures: Radiology/Procedures: PA and lateral views of the chest. Comparison: 01/21/2020. Indication: Bilateral chest and jaw pain for 3 days Findings: The heart size is enlarged but stable. No pneumothorax or effusion. No air space or interstitial disease. The bony structures are intact. Impression: 1. No acute cardiopulmonary process. [] Course & Med Decision Making: Course & Med Decision Making Pertinent Labs and Imaging studies reviewed. (See chart for details) No return of chest pain ED. Labs unremarkable. Discussed with Dr. Roman, coil strapper. He will have the cardiology contact patient to arrange follow-up within the next few days. Does not need to be admitted. Just needs close follow-up. [] Dragon Disclaimer: Dragon Disclaimer: This electronic medical record was generated, in whole or in part, using a voice recognition dictation system. Departure Departure Impression: Primary Impression: Chest pain Additional Impression: Dyspnea Disposition: 01 DC HOME SELF CARE/HOMELESS Condition: STABLE Referrals: CHERRI STOKES MD (PCP) Patient Instructions: Chest Pain (Nonspecific) Problem Qualifiers PHI CROUCH MD Jul 03, 2020 09:55
[2020-07-03 10:08] LABS: BASO # 0.1 x10^3/uL (0.0-0.2); BASO % 1 % (0-3); EOS # 0.3 x10^3/uL (0.0-0.7); EOS % 3 % (0-3); HEMATOCRIT 36.7 % (39.0-53.0); HEMOGLOBIN 12.5 g/dL (13.0-17.5); LYMPH # 1.7 x10^3/uL (1.0-4.8); LYMPH % 22 % (24-48); MEAN CORPUSCULAR HEMOGLOBIN 30 pg (25-35); MEAN CORPUSCULAR HGB CONC 34 g/dL (31-37); MEAN CORPUSCULAR VOLUME 88 fL (79-100); MONO # 0.7 x10^3/uL (0.0-1.1); MONO % 9 % (0-9); NEUT # 5.1 x10^3/uL (1.8-7.7); NEUT % 65 % (31-73); PLATELET COUNT 268 x10^3/uL (140-400); RED BLOOD COUNT 4.16 x10^6/uL (4.30-5.70); RED CELL DISTRIBUTION WIDTH 13.5 % (11.5-14.5)
[2020-07-03 10:18] LABS: CALCIUM 8.5 mg/dL (8.5-10.1); GFR 74.5; POTASSIUM 3.5 mmol/L (3.5-5.1)
[2020-07-03 10:24] LABS: ALBUMIN 3.6 g/dL (3.4-5.0); ALBUMIN/GLOBULIN RATIO 0.9 (1.0-1.7); MAGNESIUM 2.1 mg/dL (1.8-2.4); TOTAL BILIRUBIN 0.4 mg/dL (0.2-1.0); TOTAL PROTEIN 7.4 g/dL (6.4-8.2)
--- NOTE | 2020-07-03 10:31 | RAD ---
PA and lateral views of the chest. Comparison: 01/21/2020. Indication: Bilateral chest and jaw pain for 3 days Findings: The heart size is enlarged but stable. No pneumothorax or effusion. No air space or interstitial dis ease. The bony structures are intact. Impression: 1. No acute cardiopulmonary process. Electronically signed by: Rajiv Carpio MD (07/03/2020 10:29 AM) [id number]
[2020-07-03 10:36] LABS: BILIRUBIN,URINE NEGATIVE (NEG); CLARITY,URINE CLEAR; COLOR,URINE YELLOW; NITRITE,URINE NEGATIVE (NEG); PROTEIN,URINE NEGATIVE (NEG-TRACE); UROBILINOGEN,URINE 0.2 mg/dL (0.2 mg/dL)
[2020-07-03 10:53] LABS: BACTERIA,URINE 0 /HPF (0-FEW); RBC,URINE OCC /HPF (0-2)
--- NOTE | 2020-07-03 11:56 | EKG ---
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
[2020-07-03 12:20] VITALS: BP 172/81
== END 2020-07-03 12:40 | disposition home or self-care (01) ==
LOC: ER 09:16
DX: R07.89 Other chest pain (principal); R06.00 Dyspnea, unspecified; R68.84 Jaw pain; F41.9 Anxiety disorder, unspecified; E11.9 Type 2 diabetes mellitus without complications; K21.9 Gastro-esophageal reflux disease without esophagitis; E78.00 Pure hypercholesterolemia, unspecified; I10 Essential (primary) hypertension; E03.9 Hypothyroidism, unspecified; Z87.891 Personal history of nicotine dependence; Z98.890 Other specified postprocedural states; Z88.0 Allergy status to penicillin; Z88.2 Allergy status to sulfonamides
CPT/HCPCS: 36415; 71046; 80053; 81001; 82550; 83690; 83735; 83874; 83880; 84100; 84443; 84484; 85025; 85379; 87086; 93005; 99285